=== PATIENT | female | born 1980 | race Caucasian/White ===

== ENCOUNTER 2017-05-27 16:10 | Emergency (ER) | payer BC ==
[~2017-05-27] VITALS: Ht 157.5 cm; Wt 119.1 kg
[~2017-05-27 16:10] MED LIST: PERCOCET 325 MG1 TA2 PO
[2017-05-27 16:14] VITALS: TEMP 98.6
[2017-05-27] MEDS ORDERED: DOXYCYCLINE 10100 MG PO (17:34)
[2017-05-27 18:04] VITALS: BP 130/80; PULSE 93
== END 2017-05-27 18:04 | disposition home or self-care (01) ==
LOC: COL.ER 16:10
DX: T63.301A Toxic effect of unspecified spider venom, accidental (unintentional), initial encounter (principal); K75.9 Inflammatory liver disease, unspecified; Z23 Encounter for immunization; Z98.890 Other specified postprocedural states

== ENCOUNTER 2019-10-19 15:47 | Emergency (ER) | payer BC ==
[~2019-10-19] VITALS: Ht 157.5 cm; Wt 110.0 kg
[~2019-10-19 15:47] MED LIST changes: +DOXYCYCLINE 10100 MG PO
[2019-10-19 15:53] VITALS: BP 144/84; TEMP 97.8
[2019-10-19] MEDS ORDERED: GLUCOPHAGE1000 MG PO (15:58)
[2019-10-19] MEDS ORDERED: LEVEMIR FLEX100 U/ML SQ (15:58)
[2019-10-19 17:10] VITALS: PULSE 85
== END 2019-10-19 17:10 | disposition home or self-care (01) ==
LOC: COL.ER 15:47
DX: M67.431 Ganglion, right wrist (principal); E11.9 Type 2 diabetes mellitus without complications; Z79.4 Long term (current) use of insulin; Z98.890 Other specified postprocedural states